=== PATIENT | male | born 1990 | race Hispanic/Latino ===

== ENCOUNTER 2023-02-08 20:25 | Emergency (ER) | payer BC, OTHER ==
[~2023-02-08] VITALS: Ht 170.2 cm; Wt 102.1 kg
[2023-02-08 20:59] VITALS: BP 158/85; PULSE 80; RESP 18; O2SAT 98
[2023-02-08] MEDS ORDERED: KETOROLAC 30MG VIAL (30MG/ML) IM ONE (21:00)
[2023-02-08] MEDS ORDERED: CYCL10TA16 PO (22:35)
[2023-02-08] MEDS ORDERED: IBUP-2070 PO (22:35)
== END 2023-02-08 22:56 | disposition home or self-care (01) ==
LOC: EDH 20:25
DX: S96.912A Strain of unspecified muscle and tendon at ankle and foot level, left foot, initial encounter (principal); W18.39XA Other fall on same level, initial encounter; Y93.64 Activity, baseball; Y92.89 Other specified places as the place of occurrence of the external cause; Y99.8 Other external cause status
CPT/HCPCS: 99284; 73600; 73502; 73552; 73562; 96372; J1885